=== PATIENT | male | born 1935 | race Caucasian/White ===

== ENCOUNTER → 2020-03-23 | Outpatient (CLI) | payer MEDICARE | END | disposition home or self-care (01) | LOC: CFH 10:25 | PROVIDERS: ATTEND Nurse Practitioner Gerontology | DX: K57.30 Diverticulosis of large intestine without perforation or abscess without bleeding (principal); I12.9 Hypertensive chronic kidney disease with stage 1 through stage 4 chronic kidney disease, or unspecified chronic kidney disease; E11.22 Type 2 diabetes mellitus with diabetic chronic kidney disease; N18.4 Chronic kidney disease, stage 4 (severe); E87.5 Hyperkalemia; N28.89 Other specified disorders of kidney and ureter; N40.0 Benign prostatic hyperplasia without lower urinary tract symptoms; E78.5 Hyperlipidemia, unspecified; E55.9 Vitamin D deficiency, unspecified; D64.9 Anemia, unspecified; J90 Pleural effusion, not elsewhere classified; R91.8 Other nonspecific abnormal finding of lung field; M51.36 Other intervertebral disc degeneration, lumbar region; I70.0 Atherosclerosis of aorta | CPT/HCPCS: 74176 ==

== ENCOUNTER 2020-06-03 14:53 | Emergency (ER) | payer MEDICARE ==
[~2020-06-03] VITALS: Ht 175.3 cm; Wt 92.9 kg
[2020-06-03 15:47] LABS: BASOPHILS % (AUTO) 0 % (0-1); EOSINOPHILS % (AUTO) 2 % (1-7); LYMPHOCYTES % (AUTO) 20 % (22-44); MEAN CORPUSCULAR HEMOGLOBIN 30.3 pg (27.5-34.5); MEAN CORPUSCULAR HGB CONC 32.5 g/dL (33.2-36.2); MEAN PLATELET VOLUME 7.1 fL (7.4-10.4); MONOCYTES % (AUTO) 9 % (2-9); NEUTROPHILS % (AUTO) 69 % (42-75); PLATELET COUNT 510 x10^3/uL (130-400); RED BLOOD COUNT 3.97 x10^6/uL (4.38-5.82); RED CELL DISTRIBUTION WIDTH 14.9 % (9.4-14.8)
[2020-06-03 15:50] LABS: MD NO
--- NOTE | 2020-06-03 15:50 | NUR ---
[employer]: PT TO ROOM FROM LOBBY VIA W/C
[2020-06-03 15:56] LABS: ALANINE AMINOTRANSFERASE 10 U/L (12-78); ALBUMIN 3.4 g/dL (3.4-5.0); ANION GAP 7 mmol/L (5-15); CALCIUM 8.8 mg/dL (8.5-10.1); CHLORIDE 109 mmol/L (98-107); CREATININE 3.09 mg/dL (0.7-1.3)
[2020-06-03 16:00] LABS: ALKALINE PHOSPHATASE 57 U/L (45-117); BILIRUBIN,TOTAL 0.3 mg/dL (0.2-1.0); TOTAL PROTEIN 8.8 g/dL (6.4-8.2); TROPONIN I < 0.015 ng/mL (0.000-0.045)
--- NOTE | 2020-06-03 16:03 | NUR ---
THIS IS A 84 YR OLD MALE WHO STATES HE STARTED TO HAVE CP THAT WAS SUBSTERNAL IN LOCATION, NON-RADIATING, AND REPRODUCABLE WITH PALPATION. PT DENIES ANY PREVIOUS CARDIAC HX BUT DOES HAVE A MEDICAL HX OF HTN, DM, HPLD.
[2020-06-03] MEDS ORDERED: ASPIRIN 81 MG TABLET CHEW ONE (16:15)
[2020-06-03] MEDS ORDERED: NITROGLYCERIN SINGLE TAB 0.4 MG SL ONE (16:15)
[2020-06-03] MEDS ORDERED: NITROGLYCERIN SINGLE TAB 0.4 MG SL PRN (16:30)
[2020-06-03] MEDS ORDERED: ASPIRIN 81 MG TABLET CHEW PO ONE (16:30)
--- NOTE | 2020-06-03 16:53 | NUR ---
pt states no change in pain post nitro. made aware.
[2020-06-03] MEDS ORDERED: KETOROLAC 30 MG/1 ML ONE (16:56)
[2020-06-03] MEDS ORDERED: KETOROLAC 30 MG/1 ML IVPush ONE (17:00)
[2020-06-03 18:10] VITALS: BP 128/64
== END 2020-06-03 18:14 | disposition home or self-care (01) ==
LOC: ED 16:43
DX: R07.89 Other chest pain (principal); R94.31 Abnormal electrocardiogram [ECG] [EKG]; I10 Essential (primary) hypertension; E11.9 Type 2 diabetes mellitus without complications
CPT/HCPCS: 36415; 71046; 80053; 84484; 85025; 93005; 96374; 99285; J1885